=== PATIENT | female | born 1960 | race Caucasian/White ===

== ENCOUNTER 2017-07-21 14:49 | Inpatient (IN) | payer OTHER ==
[~2017-07-21] VITALS: Ht 149.9 cm; Wt 64.9 kg
[2017-07-21 16:22] LABS: EOSINOPHIL (%) 0.1 % (0-5); HEMATOCRIT 42.9 % (36.0-46.0); IMMATURE GRANULOCYTE (%) 0.4 % (0.0-0.7); IMMATURE GRANULOCYTE COUNT 0.1 K/uL; INSTRUMENT ABS NEUTROPHIL CT 13.7 K/uL; LYMPHOCYTE COUNT 1.6 K/uL (1.0-2.8); MCH 30.2 PG (29.0-34.0); MCV 86.5 FL (83-99); MEAN PLAT.VOLUME 10.3 uM^3 (9.5-12.4); MONOCYTE (%) 3.2 % (3-12); MONOCYTE COUNT 0.5 K/uL (0-0.8); NEUTROPHIL (%) 86.2 % (45-76); NEUTROPHIL COUNT 13.7 K/uL (1.8-6.4); PLATELET COUNT 298 K/uL (156-360); RBC DIS.WIDTH-CV 11.5 % (11.8-14.6); RBC DIS.WIDTH-SD 36.3 % (39-53); RED BLOOD COUNT 4.96 M/uL (3.80-5.20); WHITE BLOOD COUNT 15.8 K/uL (4.1-10.2)
[2017-07-21 16:31] LABS: CHLORIDE 102 mEq/L (99-109); POTASSIUM 3.7 mEq/L (3.7-5.4); SODIUM 136 mEq/L (136-147)
[2017-07-21 16:34] LABS: GLUCOSE 171 mg/dL (70-99)
[2017-07-21 16:35] LABS: ANION GAP 16 MEQ/L (2-14)
[2017-07-21 16:36] LABS: TOTAL BILIRUBIN 0.7 mg/dL (0.0-1.0)
[2017-07-21 16:37] LABS: ALKALINE PHOSPHATASE 48 IU/L (3-129); GFR ESTIMATE (CALCULATED) > 59 mL/min/
[2017-07-21 16:38] LABS: UREA NITROGEN (BUN) 15 mg/dL (9-23)
[2017-07-21 16:41] LABS: LIPASE 11 U/L (1.0-51.0)
[2017-07-21] MEDS ORDERED: RITALIN LA40 MG PO (19:00)
[2017-07-21] MEDS ORDERED: CYMBALTA60 MG PO (19:00)
[2017-07-21] MEDS ORDERED: PREVACID30 MG PO (19:00)
[2017-07-21] MEDS ORDERED: ADULT LOW DOSE81 M1 PO (19:01)
[2017-07-21] MEDS ORDERED: BENADRYL ALLERG25 MG PO (19:01)
[2017-07-21] MEDS ORDERED: MUCINEX1200 MG PO (19:01)
[2017-07-21] MEDS ORDERED: LYRICA50 MG PO (19:01)
[2017-07-21] MEDS ORDERED: ALEVE220 MG PO (19:01)
[2017-07-21] MEDS ORDERED: IMITREX50 MG PO (19:01)
[2017-07-21] MEDS ORDERED: LOSARTAN-HCTZ1 EAC2 PO (19:02)
[2017-07-21] MEDS ORDERED: PRAVASTATIN SOD40 MG PO (19:02)
[2017-07-21 23:31] VITALS: BP 95/54
[2017-07-22 04:16] VITALS: BP 111/58
[2017-07-22 07:18] LABS: EOSINOPHIL (%) 0 % (0-5); HEMATOCRIT 33.6 % (36.0-46.0); IMMATURE GRANULOCYTE (%) 0.5 % (0.0-0.7); IMMATURE GRANULOCYTE COUNT 0.1 K/uL; INSTRUMENT ABS NEUTROPHIL CT 10.7 K/uL; LYMPHOCYTE COUNT 0.8 K/uL (1.0-2.8); MCHC 34.5 G/DL (30.0-36.0); MCV 89.8 FL (83-99); MEAN PLAT.VOLUME 10.8 uM^3 (9.5-12.4); MONOCYTE (%) 1.8 % (3-12); MONOCYTE COUNT 0.2 K/uL (0-0.8); NEUTROPHIL (%) 90.6 % (45-76); NEUTROPHIL COUNT 10.7 K/uL (1.8-6.4); PLATELET COUNT 209 K/uL (156-360); RBC DIS.WIDTH-CV 11.9 % (11.8-14.6); RBC DIS.WIDTH-SD 38.4 % (39-53); WHITE BLOOD COUNT 11.8 K/uL (4.1-10.2)
[2017-07-22 07:19] VITALS: BP 113/56
[2017-07-22 07:19] LABS: RED BLOOD COUNT 3.74 M/uL (3.80-5.20)
[2017-07-22 07:51] LABS: ANION GAP 7 MEQ/L (2-14); CHLORIDE 106 MEQ/L (99-109); GFR ESTIMATE (CALCULATED) > 59 mL/min/; GLUCOSE 128 mg/dL (70-99); MAGNESIUM 1.9 mg/dl (1.3-2.7); POTASSIUM 4.5 MEQ/L (3.7-5.4); SAMPLE HEMOLYSIS CHECK 0; SAMPLE ICTERIC CHECK 0; SAMPLE LIPEMIA CHECK 0; SODIUM 139 MEQ/L (136-147); UREA NITROGEN (BUN) 12 mg/dL (9-23)
[2017-07-22 10:36] VITALS: BP 135/71
[2017-07-22 16:27] VITALS: BP 127/66
[2017-07-22 19:48] VITALS: BP 115/60
[2017-07-22 23:29] VITALS: BP 98/57
[2017-07-23 03:56] VITALS: BP 99/57
[2017-07-23 06:43] LABS: EOSINOPHIL (%) 0.1 % (0-5); HEMATOCRIT 29.6 % (36.0-46.0); IMMATURE GRANULOCYTE (%) 0.4 % (0.0-0.7); INSTRUMENT ABS NEUTROPHIL CT 7.4 K/uL; LYMPHOCYTE COUNT 2.3 K/uL (1.0-2.8); MCH 29.7 PG (29.0-34.0); MCHC 32.8 G/DL (30.0-36.0); MCV 90.5 FL (83-99); MEAN PLAT.VOLUME 10.7 uM^3 (9.5-12.4); MONOCYTE (%) 5.2 % (3-12); MONOCYTE COUNT 0.5 K/uL (0-0.8); NEUTROPHIL (%) 71.7 % (45-76); NEUTROPHIL COUNT 7.4 K/uL (1.8-6.4); PLATELET COUNT 160 K/uL (156-360); RBC DIS.WIDTH-CV 12.1 % (11.8-14.6); RED BLOOD COUNT 3.27 M/uL (3.80-5.20); WHITE BLOOD COUNT 10.3 K/uL (4.1-10.2)
[2017-07-23 07:12] LABS: ANION GAP 5 MEQ/L (2-14); CHLORIDE 108 MEQ/L (99-109); GFR ESTIMATE (CALCULATED) > 59 mL/min/; GLUCOSE 81 mg/dL (70-99); SAMPLE HEMOLYSIS CHECK 0; SAMPLE ICTERIC CHECK 0; SAMPLE LIPEMIA CHECK 0; SODIUM 140 MEQ/L (136-147); UREA NITROGEN (BUN) 12 mg/dL (9-23)
[2017-07-23 07:38] VITALS: BP 110/59
[2017-07-23 11:44] VITALS: BP 136/68
[2017-07-23 15:44] VITALS: BP 131/68
[2017-07-23 20:06] VITALS: BP 139/62
[2017-07-23 23:15] VITALS: BP 120/62
[2017-07-24 03:48] VITALS: BP 118/64
[2017-07-24 07:26] VITALS: BP 127/64
[2017-07-24 09:39] LABS: HEMATOCRIT 33.5 % (36.0-46.0); MCH 30.5 PG (29.0-34.0); MCV 89.6 FL (83-99); MEAN PLAT.VOLUME 10.5 uM^3 (9.5-12.4); PLATELET COUNT 180 K/uL (156-360); RBC DIS.WIDTH-CV 11.8 % (11.8-14.6); RBC DIS.WIDTH-SD 38.5 % (39-53); RED BLOOD COUNT 3.74 M/uL (3.80-5.20); WHITE BLOOD COUNT 8.4 K/uL (4.1-10.2)
[2017-07-24 10:05] LABS: ANION GAP 10 MEQ/L (2-14); CHLORIDE 105 MEQ/L (99-109); GFR ESTIMATE (CALCULATED) > 59 mL/min/; SAMPLE HEMOLYSIS CHECK 0; SAMPLE ICTERIC CHECK 0; SAMPLE LIPEMIA CHECK 0; SODIUM 144 MEQ/L (136-147); UREA NITROGEN (BUN) 9 mg/dL (9-23)
[2017-07-24 10:07] LABS: GLUCOSE 125 mg/dL (70-99); POTASSIUM 3.1 MEQ/L (3.7-5.4)
[2017-07-24 11:46] VITALS: BP 139/70
[2017-07-24 15:31] VITALS: BP 125/74
[2017-07-24 19:41] VITALS: BP 127/78
[2017-07-24 23:40] VITALS: BP 136/69
[2017-07-25 04:13] VITALS: BP 120/73
[2017-07-25 05:53] LABS: HEMATOCRIT 30.3 % (36.0-46.0); MCH 31.1 PG (29.0-34.0); MCHC 34.7 G/DL (30.0-36.0); MCV 89.6 FL (83-99); MEAN PLAT.VOLUME 10.6 uM^3 (9.5-12.4); PLATELET COUNT 155 K/uL (156-360); RBC DIS.WIDTH-CV 11.9 % (11.8-14.6); RBC DIS.WIDTH-SD 38.6 % (39-53); RED BLOOD COUNT 3.38 M/uL (3.80-5.20); WHITE BLOOD COUNT 5.9 K/uL (4.1-10.2)
[2017-07-25 06:19] LABS: ANION GAP 6 MEQ/L (2-14); CHLORIDE 109 MEQ/L (99-109); GFR ESTIMATE (CALCULATED) > 59 mL/min/; SAMPLE HEMOLYSIS CHECK 0; SAMPLE ICTERIC CHECK 0; SAMPLE LIPEMIA CHECK 0; SODIUM 144 MEQ/L (136-147); UREA NITROGEN (BUN) 5 mg/dL (9-23)
[2017-07-25 06:29] LABS: GLUCOSE 85 mg/dL (70-99); POTASSIUM 3.9 MEQ/L (3.7-5.4)
[2017-07-25 07:18] VITALS: BP 135/67
[2017-07-25 10:32] VITALS: BP 135/84
== END 2017-07-25 12:46 | disposition home or self-care (01) | DRG 389 ==
LOC: EME 14:49 → EDOF 18:30 → 3EAST 18:30 → ENRESERV 18:34 → 3EAST 22:50
PROVIDERS: Emergency Medicine; Physician Assistant Surgical; Surgery
PROC: 0DN88ZZ Release Small Intestine, Via Natural or Artificial Opening Endoscopic (ICD-10-PCS; principal; 2017-07-21)
DX: K56.50 Intestinal adhesions [bands], unspecified as to partial versus complete obstruction (principal); E87.2 Acidosis; G47.33 Obstructive sleep apnea (adult) (pediatric); E78.5 Hyperlipidemia, unspecified; I10 Essential (primary) hypertension; M79.7 Fibromyalgia; K21.9 Gastro-esophageal reflux disease without esophagitis; Z85.828 Personal history of other malignant neoplasm of skin
CPT/HCPCS: 74177; 80048; 80053; 81003; 83605; 83690; 83735; 84100; 85025; 85027; 93005; 99281; 99285; J0131; J0295; J0330; J1100; J1170; J1335; J1650; J1885; J2250; J2405; J2710; J3010; J7030; J7050; J7120